=== PATIENT | female | born 1965 | race Hispanic/Latino ===

== ENCOUNTER → 2019-12-10 | Outpatient (CLI) | payer BC ==
--- NOTE | 2019-12-10 09:58 | Diagnostic Imaging Report ---
EXAM: CHEST 2 VIEWS DATE: 12/10/2019 9:34 AM INDICATION: Chest pain COMPARISON: None FINDINGS: The trachea is midline. The lungs are symmetrically expanded without evidence for large focal consolidation, pneumothorax, or significant pleural effusion. The cardiomediastinal silhouette and pulmonary vasculature are within normal limits. No acute osseous abnormality is identified. The surrounding soft tissues are unremarkable. IMPRESSION: No acute cardiopulmonary process identified. Signed by: Dr. Robert Hennessy MD on 12/10/2019 9:54 AM
== END ==
LOC: RAD 09:23
PROVIDERS: ATTEND Family Medicine
DX: R07.9 Chest pain, unspecified (principal)
CPT/HCPCS: 71046